=== PATIENT | female | born 1950 ===

== ENCOUNTER 2017-11-30 11:45 | Inpatient (IN) | payer OTHER ==
[~2017-11-30] VITALS: Ht 154.9 cm; Wt 64.0 kg
[2017-11-30] MEDS ORDERED: ENALAPRIL MALEA20 MG PO (16:01)
[2017-11-30] MEDS ORDERED: GLIPIZIDE10 MG PO (16:03)
[2017-11-30] MEDS ORDERED: METFORMIN HCL500 MG PO (16:04)
[2017-11-30] MEDS ORDERED: CALTRATE 600+D1 EAC1 PO (16:04)
[2017-11-30] MEDS ORDERED: IRBESARTAN75 MG PO (16:04)
[2017-11-30] MEDS ORDERED: HYDROCHLOROTHIA25 MG PO (16:04)
[2017-11-30] MEDS ORDERED: SIMVASTATIN20 MG PO (16:05)
== END 2017-12-11 11:41 | disposition home or self-care (01) | DRG 330 ==
LOC: SURH 12-07 05:15 → O/R 12-07 05:15 → SURG 12-07 10:00 → SURH 12-07 20:39
PROVIDERS: Colon & Rectal Surgery
PROC: 0DN80ZZ Release Small Intestine, Open Approach (ICD-10-PCS; 2017-12-07)
PROC: 0DQ80ZZ Repair Small Intestine, Open Approach (ICD-10-PCS; 2017-12-07)
PROC: 0DT80ZZ Resection of Small Intestine, Open Approach (ICD-10-PCS; 2017-12-07)
PROC: 0WQF0ZZ Repair Abdominal Wall, Open Approach (ICD-10-PCS; 2017-12-07)
PROC: 0JX80ZZ Transfer Abdomen Subcutaneous Tissue and Fascia, Open Approach (ICD-10-PCS; 2017-12-07)
PROC: 0DTE0ZZ Resection of Large Intestine, Open Approach (ICD-10-PCS; principal; 2017-12-07 10:00)
DX: K57.32 Diverticulitis of large intestine without perforation or abscess without bleeding (principal); K91.71 Accidental puncture and laceration of a digestive system organ or structure during a digestive system procedure; K43.2 Incisional hernia without obstruction or gangrene; K66.0 Peritoneal adhesions (postprocedural) (postinfection); I11.9 Hypertensive heart disease without heart failure; E11.9 Type 2 diabetes mellitus without complications

== ENCOUNTER 2017-12-18 09:30 | Emergency (ER) | payer OTHER ==
[~2017-12-18] VITALS: Ht 152.4 cm; Wt 63.5 kg
[~2017-12-18 09:30] MED LIST: CALTRATE 600+D1 EAC1 PO; ENALAPRIL MALEA20 MG PO; GLIPIZIDE10 MG PO; HYDROCHLOROTHIA25 MG PO; IRBESARTAN75 MG PO; METFORMIN HCL500 MG PO; SIMVASTATIN20 MG PO
== END 2017-12-18 15:18 | disposition home or self-care (01) ==
LOC: ER 09:30
DX: L03.311 Cellulitis of abdominal wall (principal); T81.4XXS Infection following a procedure, sequela; Y83.8 Other surgical procedures as the cause of abnormal reaction of the patient, or of later complication, without mention of misadventure at the time of the procedure

== ENCOUNTER → 2018-01-22 | Emergency (ER) | payer OTHER ==
[~2018-01-22] VITALS: Ht 152.4 cm; Wt 62.1 kg
== END | disposition home or self-care (01) ==
LOC: ER 14:05
DX: L08.89 Other specified local infections of the skin and subcutaneous tissue (principal); T81.4XXS Infection following a procedure, sequela; B95.61 Methicillin susceptible Staphylococcus aureus infection as the cause of diseases classified elsewhere; Y83.8 Other surgical procedures as the cause of abnormal reaction of the patient, or of later complication, without mention of misadventure at the time of the procedure

== ENCOUNTER 2018-12-09 07:32 | Day surgery (SDC) | payer OTHER | END 2018-12-09 12:15 | disposition home or self-care (01) | LOC: AMB-ENDOS 07:32 | DX: K57.32 Diverticulitis of large intestine without perforation or abscess without bleeding (principal); K63.5 Polyp of colon; K64.1 Second degree hemorrhoids ==